=== PATIENT | female | born 1955 | race Caucasian/White ===

== ENCOUNTER → 2016-09-24 | Day surgery (SDC) | payer OTHER ==
[~2016-09-24] MED LIST: BUPIVACAINE/EPINEPHRINE 0.25% PF 30 ML VIAL ONE; LACTATED RINGER'S 1000 ML INJ 1,000 ML ONE; MIDAZOLAM HCL 2 MG/2 ML VIAL ONE; ONDANSETRON HCL 4 MG/2 ML VIAL IV PUSH ONE; PROPOFOL 200 MG/20 ML AMP IV ONE; ceFAZolin INJ 1,000 MG VIAL ONE
--- NOTE | 2016-09-24 11:45 | TN ---
cc: LINA GONZALES M.D. DATE OF SURGERY 09/24/2016 PREOPERATIVE DIAGNOSIS Left knee medial meniscus tear. POSTOPERATIVE DIAGNOSES 1. Left knee medial and lateral meniscal tears. 2. Extensive synovitis involving medial compartment, intercondylar notch, lateral compartment, patellofemoral joint and suprapatellar pouch. 3. Large superolateral plica. 4. Left knee chondromalacia patellofemoral joint, grade 2. PROCEDURE PERFORMED 1. Left knee arthroscopy with partial medial and lateral meniscectomy. 2. Extensive synovectomy involving anterior, medial, lateral and intercondylar notch compartments. 3. Plica excision suprapatellar pouch. 4. Chondroplasty of the patella. SURGEON MD Rhett ANESTHESIA General via laryngeal mask augmented by local infiltration. BLOOD LOSS Minimal. FLUID REPLACEMENT 500 cc of crystalloid. COUNTS Correct. TOURNIQUET TIME 24 minutes at 300 mmHg. IMPLANTS No implants were utilized. COMPLICATIONS There were no intraoperative complications. INDICATIONS FOR THE PROCEDURE Mrs. Torrez is a 61-year-old woman who has been having problems with her left knee ever since she took a fall at work in February of 2016. Her exam as well as MRI has been consistent with internal derangement that included medial meniscus tear as well as chondromalacia of the patella as well as patellar contusion. She has had limited improvement with conservative management and, as a result of her persistent symptoms, is being taken to the operating room for left knee arthroscopic surgery. She was aware of the risks, benefits, potential complications as well as limitations of the procedure and full written informed consent was obtained. Please note that we have been given permission by her carrier to proceed with surgery as well. DESCRIPTION OF PROCEDURE After the patient was properly identified and she had correctly identified her left knee as the surgical site and I confirmed that with her today as well and initialed it. She was given 1 gram of intravenous Ancef as prophylactic antibiotic and was then taken to the operating suite where she was placed under general laryngeal mask anesthetic by Dr. Carlson. At this time a thigh-high tourniquet which was well-padded was applied high on the left leg and then she was prepped with alcohol and Hibiclens and then draped in the normal standard fashion including the use of an impervious stockinette from the foot all the way up to the midcalf level. At this time a brief time-out was held. The team conferred and agreed that the left leg was the appropriate surgical site. I agreed as well and the case was now begun. Her left leg was elevated and exsanguinated with an Quoc wrap and the tourniquet was raised to 300 mmHg. Standard anteromedial and anterolateral joint line portals were established under direct vision. Inflow was initiated after the scope was introduced where a very small effusion was evacuated. The survey of the joint was as follows: The suprapatellar pouch showed evidence of a large superolateral plica which was debrided with an oscillating shaver. The patella tracked midline but there was grade 2 changes of chondromalacia primarily involving the lateral facet down to the central groove. Gentle chondroplasty was performed to simply eliminate the unstable tissue. The patellofemoral joint, especially inferiorly was impinged upon by a large amount of hypertrophic synovial tissue. Some of it appeared to be patellar fat pad but further tissue was somewhat angry-looking synovial tissue. I went ahead and performed an excision of this excessive hypertrophic synovial tissue and the patellofemoral joint at this time. At this time the medial gutter was explored. There was some hypertrophic synovial tissue which was debrided. Then the medial compartment was entered where further hypertrophic synovial tissue was adherent to the anterior half of the medial meniscus. I went ahead and debrided this with an oscillating shaver and then thoroughly explored the medial compartment. There was some mild chondromalacia of the femoral condyle and the tibial plateau but primarily grade 1 and grade 2 changes, nothing that required chondroplasty. There was a tear seen at the junction of the anterior midbody of the medial meniscus which was debrided with an oscillating shaver and there was a small degenerative-appearing tear on the posterior third of the medial meniscus. Following partial medial meniscectomy, the medial meniscus was probed and was found to be fully stable. Attention was now directed to the intercondylar notch were hypertrophic synovial tissue was adherent over the anterior cruciate ligament. In order to visualize it, synovectomy was performed with an oscillating shaver which now got me down to the level of the ACL which was intact and tensioned appropriately with anterior drawer maneuvers. The lateral compartment was now entered. There was evidence of hypertrophic synovial tissue adherent to the anterior third of the lateral meniscus which was debrided with an oscillating shaver. There was also a tear seen of the posterior horn of the lateral meniscus as well. I went ahead and thoroughly debrided it which was done without difficulty. There was some calcification appreciated in this area of dystrophic meniscal pathology. The rest of the lateral meniscus was fully stable to probing. The lateral compartment had minimal chondromalacia without requirement for any chondroplasty. At this time the knee was taken through a range of motion, was suctioned decompressed and then reinsufflated with fluid once again and all compartments were inspected further. The only thing that was done in addition at this time was further hypertrophic synovial tissue was excised primarily from the patellofemoral joint as it had been incompletely excised previously. This ultimately eliminated the impingement of the tissue in that site. At this time the knee was then decompressed one last time. The portals were then closed with 3-0 nylon simple sutures and the wounds were then dressed with Xeroform, 4x4s, ABD and an Quoc wrap was then applied to the leg. She was awoken from anesthesia. The tourniquet was let down. She had brisk return of capillary refill and palpable dorsalis pedis and posterior tibial pulses. She was taken to Recovery in stable condition. Appropriate postoperative orders have been written. Lina Gonzales MD Electronically Signed Lina Gonzales MD SIS/SSB /9:59 AM /11:28 AM BRIAN
== END | disposition home or self-care (01) ==
LOC: ESDC 07:27
PROVIDERS: ATTEND Orthopaedic Surgery Sports Medicine
DX: S83.242A Other tear of medial meniscus, current injury, left knee, initial encounter (principal); S83.282A Other tear of lateral meniscus, current injury, left knee, initial encounter; M65.9 Synovitis and tenosynovitis, unspecified; M94.262 Chondromalacia, left knee
CPT/HCPCS: 01400; 29880; J0690; J2250; J2405; J3010; J7120